=== PATIENT | male | born 1960 | race Caucasian/White ===

== ENCOUNTER 2021-06-15 01:57 | Inpatient (IN) | payer MEDICARE, OTHER ==
--- NOTE | 2021-06-15 02:13 | ED ---
Chest Pain HPI - General Chief Complaint: Chest Pain Stated Complaint: Chest Pain Time Seen by Provider: 06/15/21 02:06 Source: patient, EMS, RN notes reviewed, old records reviewed Mode of arrival: EMS Limitations: no limitations - History of Present Illness Initial Comments: This is a 61-year-old male who is accepted in transfer from outside facility known positive for coronavirus chest pain and elevated troponin. Patient states chest pain is currently improved, no fevers no significant shortness of breath. No current significant complaints MD Complaint: chest pain -: hour(s) Onset: during rest, during exertion Pain Location: substernal Pain Radiation: none Severity: moderate Severity scale (1-10): 4 Quality: tightness, aching Consistency: now resolved Improves With: nitroglycerin Worsens With: nothing Context: recent illness (postive COVID) Anginal Symptoms: nausea, dyspnea Treatments Prior to Arrival: none - Related Data Allergies Allergy/AdvReac Type Severity Reaction Status Date / Time Penicillins Allergy Unknown Verified 06/15/21 01:59 Review of Systems ROS Statement: Those systems with pertinent positive or pertinent negative responses have been documented in the HPI. ROS Other: All systems not noted in ROS Statement are negative. Past Medical History Past Medical History: Coronary Artery Disease (CAD), Diabetes Mellitus, Hyperlipidemia, Hypertension Additional Past Medical History / Comment(s): PAD History of Any Multi-Drug Resistant Organisms: None Reported Past Surgical History: Appendectomy, Coronary Bypass/CABG Past Psychological History: No Psychological Hx Reported Smoking Status: Current every day smoker Past Alcohol Use History: Occasional Past Drug Use History: None Reported General Exam General appearance: alert, in no apparent distress, anxious Head exam: Present: atraumatic, normocephalic, normal inspection Eye exam: Present: normal appearance, PERRL, EOMI. Absent: scleral icterus, conjunctival injection, periorbital swelling ENT exam: Present: normal exam, mucous membranes moist Neck exam: Present: normal inspection. Absent: tenderness, meningismus, lymphadenopathy Respiratory exam: Present: normal lung sounds bilaterally. Absent: respiratory distress, wheezes, rales, rhonchi, stridor Cardiovascular Exam: Present: regular rate, normal rhythm, normal heart sounds. Absent: systolic murmur, diastolic murmur, rubs, gallop, clicks GI/Abdominal exam: Present: soft, normal bowel sounds. Absent: distended, tenderness, guarding, rebound, rigid Extremities exam: Present: normal inspection, full ROM, normal capillary refill. Absent: tenderness, pedal edema, joint swelling, calf tenderness Back exam: Present: normal inspection Neurological exam: Present: alert, oriented X3, CN II-XII intact Psychiatric exam: Present: normal affect, normal mood Skin exam: Present: warm, dry, intact, normal color. Absent: rash Course Vital Signs 06/15/21 01:59 Temperature 98.2 F Pulse Rate 93 Respiratory 16 Rate Blood Pressure 138/95 O2 Sat by Pulse 94 L Oximetry - Reevaluation(s) Reevaluation #1: 06/15/21 02:14 Medical records reviewed 06/15/21 02:14 Transferring paperwork is reviewed Reevaluation #2: 06/15/21 02:14 Patient is informed results and questions have been answered 06/15/21 02:24 Patient continues to feel well - Consultations Consultation #1: Spoke with EM who agree to admit the patient Chest Pain MDM - MDM 61 male to the emergency department for evaluation rule out acute coronary syndrome with chest pain, positive for coronavirus. A she'll be admitted for cardiology evaluation management monitoring Disposition Clinical Impression: Chest pain, Acute non-ST elevation myocardial infarction (NSTEMI), Coronavirus infection, Alcohol intoxication Disposition: ADMITTED IP TO THIS HOSP Condition: Fair Is patient prescribed a controlled substance at d/c from ED?: No Referrals: Dandre Esposito MD [Primary Care Provider] - 1-2 days
[2021-06-15] MEDS ORDERED: NALOXONE 0.4 MG/ML 1 ML VIAL IV PRN (02:15)
[2021-06-15] MEDS ORDERED: ONDANSETRON 4 MG/2 ML VIAL IVP PRN (02:15)
[2021-06-15] MEDS: MORPHINE SULFATE 4 MG/ML SYRINGE IV PRN ×3 (02:45→10:47)
[2021-06-15 02:52] LABS: Basophils # (A) 0.1 k/uL (0-0.2); Basophils % (A) 1 %; Eosinophils # (A) 0.1 k/uL (0-0.7); Eosinophils % (A) 1 %; HCT 37.5 % (39.0-53.0); Lymphocytes # (A) 2.1 k/uL (1.0-4.8); Lymphocytes % (A) 16 %; MCH 34.1 pg (25.0-35.0); MCHC 34.6 g/dL (31.0-37.0); MCV 98.6 fL (80.0-100.0); Mean Platelet Volume 7.1; Monocytes # (A) 0.9 k/uL (0-1.0); Monocytes % (A) 7 %; Neutrophils # (A) 9.6 k/uL (1.3-7.7); Neutrophils % (A) 74 %; Platelet Count 347 k/uL (150-450); RDW 13.1 % (11.5-15.5)
[2021-06-15 03:14] LABS: INR 0.9 (<1.2); Partial Thromboplastin Time 30.3 sec (22.0-30.0); Prothrombin Time 9.9 sec (9.0-12.0)
[2021-06-15] MEDS ORDERED: HYDROmorphone 1 MG/ML 1 ML SYRINGE IVP STA (03:16)
[2021-06-15 03:21] LABS: ALT 23 U/L (4-49); AST 51 U/L (17-59); African American GFR (CKD) >90 (>60 ml/min/1.73 sqM); Albumin 4.7 g/dL (3.5-5.0); Alkaline Phosphatase 112 U/L (38-126); Anion Gap 16 mmol/L; Blood Urea Nitrogen 19 mg/dL (9-20); C Reactive Protein 4.3 mg/dL (<1.0); Carbon Dioxide 20 mmol/L (22-30); Chloride 92 mmol/L (98-107); Glucose 107 mg/dL (74-99); LDH 657 U/L (313-618); Lipase 139 U/L (23-300); Magnesium 1.5 mg/dL (1.6-2.3); Non-African American GFR(CKD) >90 (>60 ml/min/1.73 sqM); Sodium 128 mmol/L (137-145); Total Bilirubin 0.8 mg/dL (0.2-1.3); Total Protein 7.5 g/dL (6.3-8.2)
[2021-06-15 03:23] LABS: Potassium 6.1 mmol/L (3.5-5.1)
[2021-06-15] MEDS ORDERED: MAGNESIUM OXIDE 400 MG TAB PO STA (03:26)
[2021-06-15] MEDS ORDERED: DEXTROSE 50% SYRINGE 50 ML IVP STA (03:27)
[2021-06-15] MEDS ORDERED: SODIUM POLYSTYRENE SULFONATE 15 GM/60 ML BOTTLE PO STA (03:27)
[2021-06-15] MEDS ORDERED: INSULIN REGULAR 100 UNIT/ML VIAL (IV) IV ONE (03:27)
[2021-06-15] MEDS ORDERED: SODIUM BICARB 8.4% 50 ML SYR (1 MEQ/ML) IV STA (03:27)
[2021-06-15] MEDS ORDERED: SODIUM CHLORIDE 0.9% 500 ML 500 ML IV ONE (03:28)
[2021-06-15] MEDS ORDERED: SODIUM CHLORIDE 0.9% 1,000 ML IV ONE (03:28)
--- NOTE | 2021-06-15 03:45 | XR ---
EXAMINATION TYPE: XR chest 1V portable DATE OF EXAM: 06/15/2021 COMPARISON: Yesterday HISTORY: Chest pain TECHNIQUE: Single view FINDINGS: There is no heart failure nor confluent pneumonic infiltrate. There are sternal wires. Cost ophrenic angles are clear. IMPRESSION: No active cardiopulmonary disease. No change.
[2021-06-15] MEDS: MAGNESIUM SULFATE-D5W PMX 1 GM in DEXTROSE/WATER 1 100ML.BAG IVPB SCH ×4 (04:05→11:01)
[2021-06-15] MEDS: NITROGLYCERIN SL TABS 0.4 MG TAB SUBLINGUAL PRN ×3 (05:20→05:30)
[2021-06-15] MEDS: SODIUM CHLORIDE 0.9% 1,000 ML IV SCH ×3 (05:23→22:28)
[2021-06-15 05:38] LABS: Glucose,Whole Blood 126 mg/dL (75-99)
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
[2021-06-15] MEDS: HYDROmorphone 1 MG/ML 1 ML SYRINGE IVP PRN ×4 (08:17→21:11)
[2021-06-15] MEDS: ENOXAPARIN 40 MG/0.4 ML SYRINGE SQ SCH (08:23)
[2021-06-15] MEDS: PANTOPRAZOLE 40 MG/10 ML VIAL IVP SCH ×2 (08:23→21:11)
[2021-06-15] MEDS: NICOTINE 21MG/24HR PATCH TRANSDERM SCH (08:23)
[2021-06-15] MEDS: MAGNESIUM OXIDE 400 MG TAB PO SCH ×2 (08:25→21:02)
[2021-06-15] MEDS: ZINC SULFATE 220 MG CAP PO SCH (08:25)
--- NOTE | 2021-06-15 08:25 | US ---
EXAMINATION TYPE: US gallbladder DATE OF EXAM: 06/15/2021 COMPARISON: NONE CLINICAL HISTORY: Gall stones. Right upper quadrant pain EXAM MEASUREMENTS: Liver Length: 20.3 cm Gallbladder Wall: 0.2 cm CBD: 0.5 cm Right Kidney: 13.3 x 6.7 x 5.2 cm Pancreas: Echogenic, Tail obscured by overlying bowel gas Liver: Increased attenuation, decreased visualization of vessels suggestive of fatty infiltrate Gallbladder: No stones seen Evidence for sonographic Munson's sign: No CBD: wnl Right Kidney: No hydronephrosis or masses seen IMPRESSION: Correlate for hepatic steatosis.
[2021-06-15] MEDS ORDERED: lisinopriL 5 MG TAB PO SCH (09:00)
[2021-06-15] MEDS: ALBUTEROL HFA INHALER INHALATION PRN ×4 (09:42→20:37)
[2021-06-15] MEDS: THIAMINE 100 MG TAB PO SCH ×2 (10:48→17:32)
[2021-06-15] MEDS: carvediloL 12.5 MG TAB PO SCH ×2 (10:48→17:32)
[2021-06-15] MEDS: EZETIMIBE 10 MG TAB PO SCH (10:48)
[2021-06-15 11:39] LABS: Glucose,Whole Blood 167 mg/dL (75-99)
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
--- NOTE | 2021-06-15 12:25 | ECHOF ---
Referral Reason:Chest pain, SOB, covid MEASUREMENTS -------- HEIGHT: 182.9 cm WEIGHT: 104.3 kg BP: RVIDd: 4.1 cm (< 3.3) IVSd: 1.2 cm (0.6 - 1.1) LVIDd: 5.2 cm (3.9 - 5.3) LVPWd: 1.5 cm (0.6 - 1.1) IVSs: 1.6 cm LVIDs: 4.2 cm LVPWs: 1.8 cm LA Diam: 5.0 cm (2.7 - 3.8) FINDINGS -------- Sinus rhythm. Pt. not compliant. Limited Study due to Covid 19 exposure. The left ventricular size is normal. There is borderline concentric left ventricular hypertrophy. Overall left ventricular systolic function is mild-moderately impaired with, an EF between 40 - 45 % . The right ventricle is moderately enlarged. The left atrium is moderately dilated. The aortic valve is trileaflet and appears structurally normal. Mild mitral regurgitation is present. The tricuspid valve appears structurally normal. The pulmonic valve was not well visualized. There is no pericardial effusion. CONCLUSIONS -------- 1. Pt. not compliant. 2. Limited Study due to Covid 19 exposure. 3. There is borderline concentric left ventricular hypertrophy. 4. Overall left ventricular systolic function is mild-moderately impaired with, an EF between 40 - 45 %. 5. The right ventricle is moderately enlarged. 6. The left atrium is moderately dilated. 7. Mild mitral regurgitation is present. 8. There is no pericardial effusion. BULL RIVETER: Michelle Kimball RDCS
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
[2021-06-15 12:46] LABS: African American GFR (CKD) >90 (>60 ml/min/1.73 sqM); Anion Gap 12 mmol/L; Blood Urea Nitrogen 17 mg/dL (9-20); Calcium 8.6 mg/dL (8.4-10.2); Carbon Dioxide 20 mmol/L (22-30); Chloride 94 mmol/L (98-107); Glucose 115 mg/dL (74-99); Non-African American GFR(CKD) >90 (>60 ml/min/1.73 sqM); Potassium 4.8 mmol/L (3.5-5.1); Sodium 126 mmol/L (137-145)
[2021-06-15] MEDS: PREGABALIN 75 MG CAP PO SCH (15:49)
[2021-06-15 16:17] LABS: Glucose,Whole Blood 129 mg/dL (75-99)
[2021-06-15 20:42] LABS: Glucose,Whole Blood 172 mg/dL (75-99)
[2021-06-15] MEDS: ATORVASTATIN 40 MG TAB PO SCH (21:02)
[2021-06-15] MEDS: ASPIRIN 81 MG PO SCH (21:02)
[2021-06-15] MEDS: LORazepam 2 MG/ML INJ IV PRN (21:35)
[2021-06-15] MEDS: INSULIN ASPART (NovoLOG) 100 UNIT/ML VIAL SQ SCH (21:35)
[2021-06-16] MEDS: LORazepam 2 MG/ML INJ IV PRN ×14 (01:03→23:16)
[2021-06-16] MEDS: HYDROmorphone 1 MG/ML 1 ML SYRINGE IVP PRN ×6 (01:03→23:16)
[2021-06-16 06:12] LABS: Glucose,Whole Blood 119 mg/dL (75-99)
[2021-06-16] MEDS: INSULIN ASPART (NovoLOG) 100 UNIT/ML VIAL SQ SCH ×4 (06:19→20:58)
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
[2021-06-16 08:53] LABS: Basophils % (A) 0 %; Eosinophils # (A) 0.2 k/uL (0-0.7); Eosinophils % (A) 1 %; HCT 35.9 % (39.0-53.0); HGB 12.1 gm/dL (13.0-17.5); Lymphocytes # (A) 1.7 k/uL (1.0-4.8); Lymphocytes % (A) 13 %; MCH 34.2 pg (25.0-35.0); MCHC 33.7 g/dL (31.0-37.0); MCV 101.4 fL (80.0-100.0); Macrocytosis Slight; Mean Platelet Volume 7.4; Monocytes # (A) 0.7 k/uL (0-1.0); Monocytes % (A) 5 %; Neutrophils # (A) 10.3 k/uL (1.3-7.7); Neutrophils % (A) 79 %; Platelet Count 303 k/uL (150-450); RBC 3.54 m/uL (4.30-5.90); RDW 13.1 % (11.5-15.5)
[2021-06-16] MEDS: PREGABALIN 75 MG CAP PO SCH (09:06)
[2021-06-16] MEDS: ZINC SULFATE 220 MG CAP PO SCH (09:06)
[2021-06-16] MEDS: MAGNESIUM OXIDE 400 MG TAB PO SCH ×2 (09:06→20:12)
[2021-06-16] MEDS: carvediloL 12.5 MG TAB PO SCH ×2 (09:06→17:16)
[2021-06-16] MEDS: PANTOPRAZOLE 40 MG TABLET PO SCH ×2 (09:06→20:12)
[2021-06-16] MEDS: NICOTINE 21MG/24HR PATCH TRANSDERM SCH (09:06)
[2021-06-16] MEDS: ENOXAPARIN 40 MG/0.4 ML SYRINGE SQ SCH (09:06)
[2021-06-16] MEDS: EZETIMIBE 10 MG TAB PO SCH (09:07)
[2021-06-16 09:15] LABS: ALT 30 U/L (4-49); AST 55 U/L (17-59); African American GFR (CKD) >90 (>60 ml/min/1.73 sqM); Albumin 3.7 g/dL (3.5-5.0); Alkaline Phosphatase 93 U/L (38-126); Anion Gap 9 mmol/L; Blood Urea Nitrogen 11 mg/dL (9-20); Calcium 8.3 mg/dL (8.4-10.2); Carbon Dioxide 27 mmol/L (22-30); Chloride 93 mmol/L (98-107); Glucose 131 mg/dL (74-99); Lipase 99 U/L (23-300); Magnesium 1.8 mg/dL (1.6-2.3); Non-African American GFR(CKD) >90 (>60 ml/min/1.73 sqM); Potassium 4.3 mmol/L (3.5-5.1); Sodium 129 mmol/L (137-145); Total Protein 6.5 g/dL (6.3-8.2)
[2021-06-16 11:46] LABS: Glucose,Whole Blood 180 mg/dL (75-99)
[2021-06-16] MEDS: THIAMINE 100 MG TAB PO SCH ×2 (12:14→17:16)
[2021-06-16 17:04] LABS: Glucose,Whole Blood 140 mg/dL (75-99)
[2021-06-16] MEDS: SODIUM CHLORIDE 0.9% 1,000 ML IV SCH (20:08)
[2021-06-16] MEDS: ASPIRIN 81 MG PO SCH (20:12)
[2021-06-16] MEDS: ATORVASTATIN 40 MG TAB PO SCH (20:12)
[2021-06-16 20:51] LABS: Glucose,Whole Blood 115 mg/dL (75-99)
[2021-06-17] MEDS: LORazepam 2 MG/ML INJ IV PRN ×6 (02:25→23:26)
[2021-06-17] MEDS: HYDROmorphone 1 MG/ML 1 ML SYRINGE IVP PRN ×3 (03:32→16:20)
[2021-06-17] MEDS: SODIUM CHLORIDE 0.9% 1,000 ML IV SCH ×3 (06:16→23:26)
[2021-06-17] MEDS: carvediloL 12.5 MG TAB PO SCH ×2 (06:27→16:20)
[2021-06-17] MEDS: INSULIN ASPART (NovoLOG) 100 UNIT/ML VIAL SQ SCH ×4 (06:27→20:34)
[2021-06-17 06:31] LABS: Glucose,Whole Blood 85 mg/dL (75-99)
[2021-06-17 08:22] LABS: African American GFR (CKD) >90 (>60 ml/min/1.73 sqM); Anion Gap 9 mmol/L; Blood Urea Nitrogen 9 mg/dL (9-20); Carbon Dioxide 27 mmol/L (22-30); Chloride 95 mmol/L (98-107); Glucose 133 mg/dL (74-99); Magnesium 1.6 mg/dL (1.6-2.3); Non-African American GFR(CKD) >90 (>60 ml/min/1.73 sqM); Potassium 3.7 mmol/L (3.5-5.1); Sodium 131 mmol/L (137-145)
[2021-06-17] MEDS: ZINC SULFATE 220 MG CAP PO SCH (08:22)
[2021-06-17] MEDS: NICOTINE 21MG/24HR PATCH TRANSDERM SCH (08:22)
[2021-06-17] MEDS: PANTOPRAZOLE 40 MG TABLET PO SCH ×2 (08:22→20:34)
[2021-06-17] MEDS: ENOXAPARIN 40 MG/0.4 ML SYRINGE SQ SCH (08:22)
[2021-06-17] MEDS: MAGNESIUM OXIDE 400 MG TAB PO SCH ×2 (08:22→20:34)
[2021-06-17] MEDS: EZETIMIBE 10 MG TAB PO SCH (08:23)
[2021-06-17] MEDS: PREGABALIN 75 MG CAP PO SCH (08:23)
[2021-06-17] MEDS: MAGNESIUM SULFATE-D5W PMX 1 GM in DEXTROSE/WATER 1 100ML.BAG IVPB SCH ×2 (10:14→11:05)
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
[2021-06-17] MEDS: lisinopriL 5 MG TAB PO SCH (11:04)
[2021-06-17 11:38] LABS: Glucose,Whole Blood 208 mg/dL (75-99)
[2021-06-17] MEDS: THIAMINE 100 MG TAB PO SCH ×2 (13:24→16:19)
[2021-06-17 16:47] LABS: Glucose,Whole Blood 108 mg/dL (75-99)
[2021-06-17 20:14] LABS: Glucose,Whole Blood 230 mg/dL (75-99)
[2021-06-17] MEDS: ASPIRIN 81 MG PO SCH (20:34)
[2021-06-17] MEDS: ATORVASTATIN 40 MG TAB PO SCH (20:34)
[2021-06-18 00:32] VITALS: RESP 20
[2021-06-18] MEDS: LORazepam 2 MG/ML INJ IV PRN (03:38)
[2021-06-18 05:06] LABS: Glucose,Whole Blood 147 mg/dL (75-99)
[2021-06-18] MEDS: INSULIN ASPART (NovoLOG) 100 UNIT/ML VIAL SQ SCH ×2 (06:08→12:31)
[2021-06-18] MEDS: carvediloL 12.5 MG TAB PO SCH (06:08)
[2021-06-18 08:05] LABS: African American GFR (CKD) >90 (>60 ml/min/1.73 sqM); Anion Gap 11 mmol/L; Blood Urea Nitrogen 11 mg/dL (9-20); Calcium 9.3 mg/dL (8.4-10.2); Carbon Dioxide 23 mmol/L (22-30); Chloride 101 mmol/L (98-107); Glucose 133 mg/dL (74-99); Magnesium 1.6 mg/dL (1.6-2.3); Non-African American GFR(CKD) >90 (>60 ml/min/1.73 sqM); Potassium 3.9 mmol/L (3.5-5.1); Sodium 135 mmol/L (137-145)
[2021-06-18] MEDS: SODIUM CHLORIDE 0.9% 1,000 ML IV SCH (08:40)
[2021-06-18] MEDS: ZINC SULFATE 220 MG CAP PO SCH (08:55)
[2021-06-18] MEDS: PREGABALIN 75 MG CAP PO SCH (08:55)
[2021-06-18] MEDS: NICOTINE 21MG/24HR PATCH TRANSDERM SCH (08:55)
[2021-06-18] MEDS: ENOXAPARIN 40 MG/0.4 ML SYRINGE SQ SCH (08:55)
[2021-06-18] MEDS: lisinopriL 5 MG TAB PO SCH (08:55)
[2021-06-18] MEDS: EZETIMIBE 10 MG TAB PO SCH (08:55)
[2021-06-18] MEDS: MAGNESIUM OXIDE 400 MG TAB PO SCH (08:55)
[2021-06-18] MEDS: PANTOPRAZOLE 40 MG TABLET PO SCH (08:55)
[2021-06-18] MEDS ORDERED: Magnesium Replacement Protocol 1 EACH MISC MISCELLANE PRN (09:18)
[2021-06-18] MEDS: MAGNESIUM SULFATE-D5W PMX 1 GM in DEXTROSE/WATER 1 100ML.BAG IVPB SCH ×2 (10:18→12:26)
[2021-06-18 11:38] LABS: Glucose,Whole Blood 167 mg/dL (75-99)
[2021-06-18] MEDS: THIAMINE 100 MG TAB PO SCH (12:31)
[2021-06-18 13:06] VITALS: BP 154/57; PULSE 90; TEMP 98.4
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
== END 2021-06-18 16:20 | disposition home health service (06) | DRG 391 ==
LOC: EC 01:57 → 3SCARD 02:16
PROVIDERS: ADMIT Hospitalist; ATTEND Hospitalist
PROC: HZ2ZZZZ Detoxification Services for Substance Abuse Treatment (ICD-10-PCS; principal; 2021-06-15)
DX: K29.20 Alcoholic gastritis without bleeding (principal); U07.1 COVID-19; E87.1 Hypo-osmolality and hyponatremia; E87.2 Acidosis; F10.239 Alcohol dependence with withdrawal, unspecified; I25.10 Atherosclerotic heart disease of native coronary artery without angina pectoris; Z20.822 Contact with and (suspected) exposure to COVID-19; E11.51 Type 2 diabetes mellitus with diabetic peripheral angiopathy without gangrene; I10 Essential (primary) hypertension; D72.829 Elevated white blood cell count, unspecified; R07.89 Other chest pain; K27.9 Peptic ulcer, site unspecified, unspecified as acute or chronic, without hemorrhage or perforation; E78.5 Hyperlipidemia, unspecified; E83.42 Hypomagnesemia; E86.0 Dehydration; E86.1 Hypovolemia; E87.5 Hyperkalemia; F10.229 Alcohol dependence with intoxication, unspecified; F17.210 Nicotine dependence, cigarettes, uncomplicated; I34.0 Nonrheumatic mitral (valve) insufficiency; K76.0 Fatty (change of) liver, not elsewhere classified; Z79.84 Long term (current) use of oral hypoglycemic drugs; Z79.899 Other long term (current) drug therapy; Z95.1 Presence of aortocoronary bypass graft; Z88.0 Allergy status to penicillin; Z71.41 Alcohol abuse counseling and surveillance of alcoholic
CPT/HCPCS: 36415; 71045; 76705; 80048; 80053; 83615; 83690; 83735; 83880; 84100; 84484; 85025; 85610; 85730; 86140; 87635; 93005; 93308; 94640; 94760; 99285

== ENCOUNTER 2024-04-17 02:33 | Emergency (ER) | payer MEDICARE, OTHER ==
--- NOTE | 2024-04-17 02:44 | ED ---
Arrhythmia/Palpitations HPI - General Stated Complaint: Syncope Time Seen by Provider: 04/17/24 02:38 Source: EMS Mode of arrival: EMS - History of Present Illness Initial Comments: Patient is a 63-year-old man with history of end-stage renal disease on hemodialysis who presents to have evaluation for dizziness, nausea and vomiting. The patient states that he had eaten dinner. He then got up to use the bathroom and was feeling very lightheaded and unsteady, like he was going to pass out. The patient was able to make it to bed and then he had an episode of vomiting. His had already called EMS. Patient states that he felt better after vomiting and wanted to stay home but EMS placed him on monitor and found that he had rapid heart beat above 150 bpm. Patient states he thinks he was told he had irregular heartbeat in the past, and search of his medications reveals that he takes amiodarone 200 mg daily. Chest pain. No dyspnea currently. No more nausea or vomiting. MD Complaint: "heart racing" -: hour(s) Context: occurred during rest Arrhythmia History: atrial fibrillation Associated Symptoms: near-syncope, nausea/vomiting Treatments Prior to Arrival: calcium channel lucinda - Related Data Home Medications Medication Instructions Recorded Confirmed Rosuvastatin [Crestor] 20 mg PO HS 06/15/21 04/24/24 Amiodarone [Cordarone] 200 mg PO DAILY 04/24/24 04/24/24 Aspirin 81 mg PO DAILY 04/24/24 04/24/24 Clopidogrel [Plavix] 75 mg PO DAILY 04/24/24 04/24/24 Loperamide [Imodium] 4 mg PO QID PRN 04/24/24 04/24/24 Metoprolol Tartrate [Lopressor] 12.5 mg PO BID 04/24/24 04/24/24 Midodrine HCl [ProAmatine] 10 mg PO BID 04/24/24 04/24/24 Nystatin 100,000 Unit/gm Powd 1 applic TOPICAL TID 04/24/24 04/24/24 [Mycostatin Powder] OLANZapine 10 mg PO HS 04/24/24 04/24/24 Omeprazole 40 mg PO DAILY 04/24/24 04/24/24 Potassium Chloride ER [K-Dur 20] 20 meq PO DAILY 04/24/24 04/24/24 Sertraline [Zoloft] 25 mg PO DAILY 04/24/24 04/24/24 Sevelamer [Renvela] 800 mg PO AC-TID 04/24/24 04/24/24 Allergies Allergy/AdvReac Type Severity Reaction Status Date / Time Penicillins Allergy Unknown Verified 04/24/24 14:32 Review of Systems ROS Statement: Those systems with pertinent positive or pertinent negative responses have been documented in the HPI. ROS Other: All systems not noted in ROS Statement are negative. Constitutional: Denies: fever, chills, weakness Eyes: Denies: vision change Respiratory: Denies: cough, dyspnea, hemoptysis Cardiovascular: Reports: syncope (Presyncope). Denies: chest pain, palpitations, edema Gastrointestinal: Reports: nausea, vomiting. Denies: abdominal pain, diarrhea, hematemesis, melena, hematochezia Genitourinary: Denies: dysuria Musculoskeletal: Denies: back pain Skin: Denies: rash Neurological: Denies: headache, weakness Past Medical History Past Medical History: Coronary Artery Disease (CAD), Diabetes Mellitus, Hyperlipidemia, Hypertension Additional Past Medical History / Comment(s): PAD History of Any Multi-Drug Resistant Organisms: None Reported Past Surgical History: Appendectomy, Coronary Bypass/CABG Past Psychological History: No Psychological Hx Reported Smoking Status: Current every day smoker Past Alcohol Use History: Occasional Past Drug Use History: None Reported General Exam General appearance: alert, in no apparent distress Head exam: Present: atraumatic, normocephalic Eye exam: Present: normal appearance. Absent: scleral icterus, conjunctival injection ENT exam: Present: mucous membranes dry Neck exam: Present: normal inspection Respiratory exam: Present: normal lung sounds bilaterally. Absent: respiratory distress, wheezes, rales, rhonchi, stridor, accessory muscle use Cardiovascular Exam: Present: tachycardia, irregular rhythm, systolic murmur. Absent: diastolic murmur, rubs, gallop GI/Abdominal exam: Present: soft. Absent: distended, tenderness, guarding, rebound, rigid, mass Extremities exam: Present: normal inspection, normal capillary refill. Absent: pedal edema, calf tenderness Back exam: Present: normal inspection. Absent: CVA tenderness (R), CVA tenderness (L) Neurological exam: Present: alert Skin exam: Present: warm, dry, intact, normal color. Absent: rash Course Vital Signs 12/28/24 12/28/24 12/28/24 02:35 03:00 03:30 Temperature 98.0 F Pulse Rate 128 H 121 H 128 H Respiratory 18 18 18 Rate Blood Pressure 71/51 83/61 75/56 O2 Sat by Pulse 94 L 95 95 Oximetry 04/17/24 04:00 Temperature Pulse Rate 71 Respiratory 18 Rate Blood Pressure 79/62 O2 Sat by Pulse 95 Oximetry EKG Findings - EKG Results: EKG: normal axis EKG shows: tachycardia (Rate 130 bpm), atrial fibrillation - Blocks, [place], Hypertrophy, ST Abn: AV and intraventricular conduction: intraventricular conduction delay Repolarization changes or abnormalities: nonspecific abnormality, ST segment, and/or T wave Medical Decision Making - Medical Decision Making The patient had chest x-ray that I interpreted as negative for acute infiltrate, pneumothorax, congestive heart failure Was pt. sent in by a medical professional or institution (Dr. PA, RESIDENTIAL TREATMENT COUNSELOR, urgent care, hospital, or prison...) When possible be specific @ -[No] Did you speak to anyone other than the patient for history (EMS, parent, family, police, friend...)? What history was obtained from this source @ -[No] Did you review nursing and triage notes (agree or disagree)? Why? @ -[I reviewed and agree with nursing and triage notes] Were old charts reviewed (outside hosp., previous admission, EMS record, old EKG, old radiological studies, urgent care reports/EKG's, prison records)? Report findings @ -[No old charts were reviewed] Differential Diagnosis (chest pain, altered mental status, abdominal pain women, abdominal pain men, vaginal bleeding, weakness, fever, dyspnea, syncope, headache, dizziness, GI bleed, back pain, seizure, CVA, palpatations, mental health, musculoskeletal)? @ -[Differential Dizziness: Benign paroxysmal positional Vertigo, Meniere's disease, otitis media, acoustic neuroma, vertebrobasilar insufficiency, cerebellar stroke, encephalitis, hypovolemic, arrhythmia, coronary artery syndrome, anemia, this is not meant to be an all-inclusive list EKG interpreted by me (3pts min.). @ -[I interpreted as above] X-rays interpreted by me (1pt min.). @ -[I interpreted as above CT interpreted by me (1pt min.). @ -[None done] U/S interpreted by me (1pt. min.). @ -[None done] What testing was considered but not performed or refused? (CT, X-rays, U/S, labs)? Why? @ -[None] What meds were considered but not given or refused? Why? @ -[None] Did you discuss the management of the patient with other professionals (lisa burks i.e. , PA, RESIDENTIAL TREATMENT COUNSELOR, lab, RT, psych nurse, professor of social work, dual hose cementer, teacher, disabilities services officer, machine adjuster leader case trim)? Give summary @ -[No] Was smoking cessation discussed for >3mins.? @ -[No] Was critical care preformed (if so, how long)? @ -[No] Were there social determinants of health that impacted care today? How? (Homelessness, low income, unemployed, alcoholism, drug addiction, transportation, low edu. Level, literacy, decrease access to med. care, assisted, rehab)? @ -[No] Was there de-escalation of care discussed even if they declined (Discuss DNR or withdrawal of care, Hospice)? DNR status @ -[No] What co-morbidities impacted this encounter? (DM, HTN, Smoking, COPD, CAD, Cancer, CVA, ARF, Chemo, Hep., AIDS, mental health diagnosis, sleep apnea, morbid obesity)? @ -[None] Was patient admitted / discharged? Hospital course, mention meds given and route, prescriptions, significant lab abnormalities, going to OR and other pertinent info. @ -This patient is 64-year-old man who presented with complaint that he was not feeling well, including feeling lightheaded and dizzy, having nausea and vomiting. The patient is found to be in atrial fibrillation. The remainder of the workup largely unremarkable. The patient does take amiodarone and is given dose of his medication. The patient did revert to sinus rhythm in the department here. He was offered admission but he is declining and would like to follow-up with his doctor as an outpatient. We discussed appropriate further care and follow-up as well as return parameters. The patient did have mild elevation of troponin but suspect that this is due to the renal failure, there may be a small component related to rate but he has become asymptomatic and declined admission Undiagnosed new problem with uncertain prognosis? @ -[No] Drug Therapy requiring intensive monitoring for toxicity (Heparin, Nitro, Insulin, Cardizem)? @ -[No] Were any procedures done? @ -[No] Diagnosis/symptom? @ -Atrial fibrillation with rapid ventricular rate, subsequently resolved Nausea and vomiting, resolved Dizziness, resolved Acute, or Chronic, or Acute on Chronic? @ -[Acute Uncomplicated (without systemic symptoms) or Complicated (systemic symptoms)? @ -[Complicated by nausea and vomiting and dizziness Side effects of treatment? @ -[No] Exacerbation, Progression, or Severe Exacerbation? @ -[No] Poses a threat to life or bodily function? How? (Chest pain, USA, [place], pneumonia, PE, COPD, DKA, ARF, appy, cholecystitis, CVA, Diverticulitis, Homicidal, Suicidal, threat to staff... and all critical care pts) @ -[ there is risk but low, discussed appropriate further care and follow-up as well as return parameters All treatments are based on ideal body weight as in ED triage - Lab Data Result diagrams: 04/17/24 02:42 04/17/24 02:42 Lab Results 04/17/24 04/17/24 04/17/24 Range/Units 02:42 02:42 02:42 WBC 9.9 (3.8-10.6) k/uL RBC 3.11 L (4.30-5.90) m/uL Hgb 9.5 L (13.0-17.5) gm/dL Hct 29.0 L (39.0-53.0) % MCV 93.3 (80.0-100.0) fL MCH 30.7 (25.0-35.0) pg MCHC 32.9 (31.0-37.0) g/dL RDW 14.4 (11.5-15.5) % Plt Count 329 (150-450) k/uL MPV 7.3 Neutrophils % 67 % Lymphocytes % 21 % Monocytes % 7 % Eosinophils % 3 % Basophils % 0 % Neutrophils # 6.6 (1.3-7.7) k/uL Lymphocytes # 2.0 (1.0-4.8) k/uL Monocytes # 0.7 (0-1.0) k/uL Eosinophils # 0.3 (0-0.7) k/uL Basophils # 0.0 (0-0.2) k/uL PT 11.1 (10.0-12.5) sec INR 1.0 (<1.2) APTT 22.9 (22.0-30.0) sec Sodium 137 (137-145) mmol/L Potassium 4.6 (3.5-5.1) mmol/L Chloride 92 L (98-107) mmol/L Carbon Dioxide 34 H (22-30) mmol/L Anion Gap 11 mmol/L BUN 51 H (9-20) mg/dL Creatinine 6.80 H (0.66-1.25) mg/dL Est GFR (CKD-EPI)AfAm 9 (>60 ml/min/1.73 sqM) Est GFR (CKD-EPI)NonAf 8 (>60 ml/min/1.73 sqM) Glucose 109 H (74-99) mg/dL Calcium 9.7 (8.4-10.2) mg/dL Magnesium 1.7 (1.6-2.3) mg/dL Total Bilirubin 0.6 (0.2-1.3) mg/dL AST 38 (17-59) U/L ALT 30 (4-49) U/L Alkaline Phosphatase 310 H (38-126) U/L Troponin I (0.000-0.034) ng/mL Total Protein 7.9 (6.3-8.2) g/dL Albumin 4.7 (3.5-5.0) g/dL 04/17/24 Range/Units 02:42 WBC (3.8-10.6) k/uL RBC (4.30-5.90) m/uL Hgb (13.0-17.5) gm/dL Hct (39.0-53.0) % MCV (80.0-100.0) fL MCH (25.0-35.0) pg MCHC (31.0-37.0) g/dL RDW (11.5-15.5) % Plt Count (150-450) k/uL MPV Neutrophils % % Lymphocytes % % Monocytes % % Eosinophils % % Basophils % % Neutrophils # (1.3-7.7) k/uL Lymphocytes # (1.0-4.8) k/uL Monocytes # (0-1.0) k/uL Eosinophils # (0-0.7) k/uL Basophils # (0-0.2) k/uL PT (10.0-12.5) sec INR (<1.2) APTT (22.0-30.0) sec Sodium (137-145) mmol/L Potassium (3.5-5.1) mmol/L Chloride (98-107) mmol/L Carbon Dioxide (22-30) mmol/L Anion Gap mmol/L BUN (9-20) mg/dL Creatinine (0.66-1.25) mg/dL Est GFR (CKD-EPI)AfAm (>60 ml/min/1.73 sqM) Est GFR (CKD-EPI)NonAf (>60 ml/min/1.73 sqM) Glucose (74-99) mg/dL Calcium (8.4-10.2) mg/dL Magnesium (1.6-2.3) mg/dL Total Bilirubin (0.2-1.3) mg/dL AST (17-59) U/L ALT (4-49) U/L Alkaline Phosphatase (38-126) U/L Troponin I 0.057 H* (0.000-0.034) ng/mL Total Protein (6.3-8.2) g/dL Albumin (3.5-5.0) g/dL Disposition Clinical Impression: Atrial fibrillation Disposition: HOME SELF-CARE Condition: Good Instructions (If sedation given, give patient instructions): A-fib (Atrial Fibrillation) (ED) Is patient prescribed a controlled substance at d/c from ED?: No Referrals: Mike Alfred MD [Primary Care Provider] - 1-2 days
[2024-04-17 02:47] VITALS: RESP 18; TEMP 98
[2024-04-17] MEDS: AMIODARONE 200 MG TAB PO STA (02:50)
[2024-04-17 02:57] LABS: Basophils % (A) 0 %; Eosinophils # (A) 0.3 k/uL (0-0.7); Eosinophils % (A) 3 %; HGB 9.5 gm/dL (13.0-17.5); Lymphocytes % (A) 21 %; MCH 30.7 pg (25.0-35.0); MCHC 32.9 g/dL (31.0-37.0); MCV 93.3 fL (80.0-100.0); Mean Platelet Volume 7.3; Monocytes # (A) 0.7 k/uL (0-1.0); Monocytes % (A) 7 %; Neutrophils # (A) 6.6 k/uL (1.3-7.7); Neutrophils % (A) 67 %; Platelet Count 329 k/uL (150-450); RBC 3.11 m/uL (4.30-5.90); RDW 14.4 % (11.5-15.5); WBC 9.9 k/uL (3.8-10.6)
[2024-04-17 03:07] LABS: Partial Thromboplastin Time 22.9 sec (22.0-30.0); Prothrombin Time 11.1 sec (10.0-12.5)
[2024-04-17 03:19] LABS: ALT 30 U/L (4-49); AST 38 U/L (17-59); African American GFR (CKD) 9 (>60 ml/min/1.73 sqM); Albumin 4.7 g/dL (3.5-5.0); Alkaline Phosphatase 310 U/L (38-126); Anion Gap 11 mmol/L; Blood Urea Nitrogen 51 mg/dL (9-20); Calcium 9.7 mg/dL (8.4-10.2); Carbon Dioxide 34 mmol/L (22-30); Chloride 92 mmol/L (98-107); Glucose 109 mg/dL (74-99); Magnesium 1.7 mg/dL (1.6-2.3); Non-African American GFR(CKD) 8 (>60 ml/min/1.73 sqM); Potassium 4.6 mmol/L (3.5-5.1); Sodium 137 mmol/L (137-145); Total Bilirubin 0.6 mg/dL (0.2-1.3); Total Protein 7.9 g/dL (6.3-8.2)
--- NOTE | 2024-04-17 03:59 | XR ---
EXAM: XR Chest, 1 View CLINICAL HISTORY: ITS.REASON XR Reason: dysrhythmia TECHNIQUE: Frontal view of the chest. COMPARISON: No relevant prior studies available. FINDINGS: Lungs: No consolidation or mass. Pleural space: No acute findings. Heart: cardiomegaly. Bones/joints: No acute findings. IMPRESSION: No acute cardiopulmonary process.
[2024-04-17 04:08] VITALS: BP 79/62; PULSE 71
== END 2024-04-17 04:00 | disposition home or self-care (01) ==
LOC: EC 02:33
DX: I48.91 Unspecified atrial fibrillation (principal); F17.200 Nicotine dependence, unspecified, uncomplicated; Z88.0 Allergy status to penicillin; Z95.1 Presence of aortocoronary bypass graft; Z99.2 Dependence on renal dialysis
CPT/HCPCS: 36415; 71045; 80053; 83735; 84484; 85025; 85610; 85730; 93005; 99284

== ENCOUNTER 2024-04-24 12:39 | Emergency (ER) | payer MEDICARE ==
[2024-04-24 12:49] VITALS: RESP 18; TEMP 97.8
[2024-04-24] MEDS: SODIUM CHLORIDE 0.9% 500 ML 500 ML IV STA (13:14)
--- NOTE | 2024-04-24 13:14 | ED ---
Weakness HPI - General Chief complaint: Weakness Stated complaint: weakness Time Seen by Provider: 04/24/24 12:52 Source: patient, family, EMS, RN notes reviewed Mode of arrival: EMS Limitations: no limitations - History of Present Illness Initial comments: 63-year-old male presents emerged part via EMS from dialysis for weakness, hypotension and syncope. Patient had multiple syncopal episodes. Patient states that has been happening more frequently. Patient has been on dialysis for last 3 weeks after acute kidney failure from antibiotic use. Patient states that he did go on completed a session he states he is on midodrine for his blood pressure has been on the lower side he states he did take it this morning. Patient states she does have an ostomy and when she has short bowel syndrome and he has high output. Patient states he is urinated 4 times today but still feels dehydrated. He denies any shortness of breath, fever or chills he states he is always weak feeling but is worse than usual. - Related Data Home Medications Medication Instructions Recorded Confirmed Rosuvastatin [Crestor] 20 mg PO HS 06/15/21 04/24/24 Amiodarone [Cordarone] 200 mg PO DAILY 04/24/24 04/24/24 Aspirin 81 mg PO DAILY 04/24/24 04/24/24 Clopidogrel [Plavix] 75 mg PO DAILY 04/24/24 04/24/24 Loperamide [Imodium] 4 mg PO QID PRN 04/24/24 04/24/24 Metoprolol Tartrate [Lopressor] 12.5 mg PO BID 04/24/24 04/24/24 Midodrine HCl [ProAmatine] 10 mg PO BID 04/24/24 04/24/24 Nystatin 100,000 Unit/gm Powd 1 applic TOPICAL TID 04/24/24 04/24/24 [Mycostatin Powder] OLANZapine 10 mg PO HS 04/24/24 04/24/24 Omeprazole 40 mg PO DAILY 04/24/24 04/24/24 Potassium Chloride ER [K-Dur 20] 20 meq PO DAILY 04/24/24 04/24/24 Sertraline [Zoloft] 25 mg PO DAILY 04/24/24 04/24/24 Sevelamer [Renvela] 800 mg PO AC-TID 04/24/24 04/24/24 Allergies Allergy/AdvReac Type Severity Reaction Status Date / Time Penicillins Allergy Unknown Verified 04/24/24 14:32 Review of Systems ROS Statement: Those systems with pertinent positive or pertinent negative responses have been documented in the HPI. ROS Other: All systems not noted in ROS Statement are negative. Past Medical History Past Medical History: Coronary Artery Disease (CAD), Diabetes Mellitus, Dialys is, Hyperlipidemia, Hypertension Additional Past Medical History / Comment(s): PAD, current dialysis port right chest (Apr 2024), Feeding tube left chest (Apr 2024) History of Any Multi-Drug Resistant Organisms: None Reported Past Surgical History: Appendectomy, Coronary Bypass/CABG Past Psychological History: No Psychological Hx Reported Smoking Status: Current every day smoker Past Alcohol Use History: Occasional Past Drug Use History: None Reported General Exam Limitations: no limitations General appearance: alert, in no apparent distress Head exam: Present: atraumatic, normocephalic, normal inspection Eye exam: Present: normal appearance, PERRL, EOMI. Absent: scleral icterus, conjunctival injection, periorbital swelling ENT exam: Present: normal exam, normal oropharynx, mucous membranes moist Neck exam: Present: normal inspection. Absent: tenderness, meningismus, lymphadenopathy Respiratory exam: Present: normal lung sounds bilaterally. Absent: respiratory distress, wheezes, rales, rhonchi, stridor Cardiovascular Exam: Present: regular rate, normal rhythm, normal heart sounds. Absent: systolic murmur, diastolic murmur, rubs, gallop, clicks GI/Abdominal exam: Present: soft, normal bowel sounds, other (Ostomy noted, large output in colostomy bag). Absent: distended, tenderness, guarding, rebound, rigid Back exam: Absent: CVA tenderness (R), CVA tenderness (L) Neurological exam: Present: alert, oriented X3, CN II-XII intact Skin exam: Present: warm, dry, intact, normal color. Absent: rash Course Vital Signs 04/24/24 04/24/24 04/24/24 12:47 12:49 12:50 Temperature 97.8 F Pulse Rate 75 78 Pulse Rate [ 79 Orthopedics Nurse ] Respiratory 18 18 Rate Blood Pressure 83/56 83/56 O2 Sat by Pulse 92 L 93 L Oximetry 04/24/24 04/24/24 04/24/24 13:00 13:10 13:20 Temperature Pulse Rate 82 80 80 Pulse Rate [ Orthopedics Nurse ] Respiratory 18 18 18 Rate Blood Pressure 70/43 71/42 63/44 O2 Sat by Pulse 99 99 95 Oximetry 04/24/24 04/24/24 13:24 14:26 Temperature Pulse Rate 72 73 Pulse Rate [ Orthopedics Nurse ] Respiratory 18 18 Rate Blood Pressure 80/63 74/48 O2 Sat by Pulse 92 L 98 Oximetry Medical Decision Making - Medical Decision Making Was pt. sent in by a medical professional or institution (MUSTAPHA Camargo, ACCOUNT TECHNICIAN, urgent care, hospital, or longterm...) When possible be specific @ -Dialysis Did you speak to anyone other than the patient for history (EMS, parent, family, police, friend...)? What history was obtained from this source @ -No Did you review nursing and triage notes (agree or disagree)? Why? @ -I reviewed and agree with nursing and triage notes Were old charts reviewed (outside hosp., previous admission, EMS record, old EKG, old radiological studies, urgent care reports/EKG's, longterm records)? Report findings @ -No old charts were reviewed Differential Diagnosis (chest pain, altered mental status, abdominal pain women, abdominal pain men, vaginal bleeding, weakness, fever, dyspnea, syncope, headache, dizziness, GI bleed, back pain, seizure, CVA, palpatations, mental health, musculoskeletal)? @ -Differential Weakness: Hypoglycemia, shock, sepsis, hyponatremia, anemia, infection, [place], ETOH, adverse medicine reaction, overdose, stroke, this is not meant to be an all-inclusive list. EKG interpreted by me (3pts min.). @ -As above X-rays interpreted by me (1pt min.). @ -[Chest shows no acute cardiopulmonary process CT interpreted by me (1pt min.). @ -None done U/S interpreted by me (1pt. min.). @ -None done What testing was considered but not performed or refused? (CT, X-rays, U/S, labs)? Why? @ -None What meds were considered but not given or refused? Why? @ -None Did you discuss the management of the patient with other professionals (professionals i.e. MUSTAPHA Camargo, ACCOUNT TECHNICIAN, lab, RT, psych nurse, public health social worker, linux security administrator, teacher, public affairs officer, pillowcase cutter)? Give summary @ -Aneesh [facility] physician for admission with consults to nephrology, cardiology Was smoking cessation discussed for >3mins.? @ -No Was critical care preformed (if so, how long)? @ -No Were there social determinants of health that impacted care today? How? (Homelessness, low income, unemployed, alcoholism, drug addiction, transportation, low edu. Level, literacy, decrease access to med. care, care home, rehab)? @ -No Was there de-escalation of care discussed even if they declined (Discuss DNR or withdrawal of care, Hospice)? DNR status @ -No What co-morbidities impacted this encounter? (DM, HTN, Smoking, COPD, CAD, Cancer, CVA, ARF, Chemo, Hep., AIDS, mental health diagnosis, sleep apnea, morbid obesity)? @ -Renal failure Was patient admitted / discharged? Hospital course, mention meds given and route, prescriptions, significant lab abnormalities, going to OR and other pertinent info. @ -Admitted patient presented for increasing syncope, hypotension and weakness. Patient has renal failure worsening from baseline. Patient remains to be hypot ensive was given IV fluids, midodrine. Patient will be admitted for cardiology and nephrology evaluation. Undiagnosed new problem with uncertain prognosis? @ -No Drug Therapy requiring intensive monitoring for toxicity (Heparin, Nitro, Insulin, Cardizem)? @ -No Were any procedures done? @ -No Diagnosis/symptom? @ -Renal failure, hypotension, syncope Acute, or Chronic, or Acute on Chronic? @ -Acute Uncomplicated (without systemic symptoms) or Complicated (systemic symptoms)? @ -Complicated Side effects of treatment? @ -No Exacerbation, Progression, or Severe Exacerbation? @ -No Poses a threat to life or bodily function? How? (Chest pain, [place], [place], pneumonia, PE, COPD, DKA, ARF, appy, cholecystitis, CVA, Diverticulitis, Homicidal, Suicidal, threat to staff... and all critical care pts) @ -Yes cardiac dysfunction - Lab Data Result diagrams: 04/24/24 13:10 04/24/24 13:10 Lab Results 04/24/24 04/24/24 04/24/24 Range/Units 13:10 13:10 13:10 WBC 9.3 (3.8-10.6) k/uL RBC 3.08 L (4.30-5.90) m/uL Hgb 9.6 L (13.0-17.5) gm/dL Hct 28.5 L (39.0-53.0) % MCV 92.6 (80.0-100.0) fL MCH 31.1 (25.0-35.0) pg MCHC 33.6 (31.0-37.0) g/dL RDW 14.7 (11.5-15.5) % Plt Count 296 (150-450) k/uL MPV 7.4 Neutrophils % 66 % Lymphocytes % 22 % Monocytes % 6 % Eosinophils % 3 % Basophils % 1 % Neutrophils # 6.1 (1.3-7.7) k/uL Lymphocytes # 2.0 (1.0-4.8) k/uL Monocytes # 0.6 (0-1.0) k/uL Eosinophils # 0.2 (0-0.7) k/uL Basophils # 0.1 (0-0.2) k/uL PT 10.6 (10.0-12.5) sec INR 0.9 (<1.2) APTT 23.4 (22.0-30.0) sec Sodium 133 L (137-145) mmol/L Potassium 4.6 (3.5-5.1) mmol/L Chloride 75 L (98-107) mmol/L Carbon Dioxide 35 H (22-30) mmol/L Anion Gap 23 mmol/L BUN 96 H (9-20) mg/dL Creatinine 8.90 H* (0.66-1.25) mg/dL Est GFR (CKD-EPI)AfAm 7 (>60 ml/min/1.73 sqM) Est GFR (CKD-EPI)NonAf 6 (>60 ml/min/1.73 sqM) Glucose 226 H (74-99) mg/dL Plasma Lactic Acid Noman (0.7-2.0) mmol/L Calcium 9.6 (8.4-10.2) mg/dL Magnesium 1.5 L (1.6-2.3) mg/dL Total Bilirubin 1.0 (0.2-1.3) mg/dL AST 55 (17-59) U/L ALT 43 (4-49) U/L Alkaline Phosphatase 299 H (38-126) U/L Troponin I (0.000-0.034) ng/mL NT-Pro-B Natriuret Pep 3300 pg/mL Total Protein 8.4 H (6.3-8.2) g/dL Albumin 4.9 (3.5-5.0) g/dL 04/24/24 04/24/24 Range/Units 13:10 13:10 WBC (3.8-10.6) k/uL RBC (4.30-5.90) m/uL Hgb (13.0-17.5) gm/dL Hct (39.0-53.0) % MCV (80.0-100.0) fL MCH (25.0-35.0) pg MCHC (31.0-37.0) g/dL RDW (11.5-15.5) % Plt Count (150-450) k/uL MPV Neutrophils % % Lymphocytes % % Monocytes % % Eosinophils % % Basophils % % Neutrophils # (1.3-7.7) k/uL Lymphocytes # (1.0-4.8) k/uL Monocytes # (0-1.0) k/uL Eosinophils # (0-0.7) k/uL Basophils # (0-0.2) k/uL PT (10.0-12.5) sec INR (<1.2) APTT (22.0-30.0) sec Sodium (137-145) mmol/L Potassium (3.5-5.1) mmol/L Chloride (98-107) mmol/L Carbon Dioxide (22-30) mmol/L Anion Gap mmol/L BUN (9-20) mg/dL Creatinine (0.66-1.25) mg/dL Est GFR (CKD-EPI)AfAm (>60 ml/min/1.73 sqM) Est GFR (CKD-EPI)NonAf (>60 ml/min/1.73 sqM) Glucose (74-99) mg/dL Plasma Lactic Acid Noman 2.2 H* (0.7-2.0) mmol/L Calcium (8.4-10.2) mg/dL Magnesium (1.6-2.3) mg/dL Total Bilirubin (0.2-1.3) mg/dL AST (17-59) U/L ALT (4-49) U/L Alkaline Phosphatase (38-126) U/L Troponin I 0.045 H* (0.000-0.034) ng/mL NT-Pro-B Natriuret Pep pg/mL Total Protein (6.3-8.2) g/dL Albumin (3.5-5.0) g/dL - EKG Data -: EKG Interpreted by Me EKG Comments: EKG performed at 12: 49 sinus rhythm with a rate of 76 [place] 125 QRS 112 QT/QTc 398/428 Disposition Clinical Impression: Syncope, Renal failure, Hypotension Disposition: ADMITTED IP TO THIS HOSP Condition: Serious Referrals: Mike Alfred MD [Primary Care Provider] - 1-2 days Time of Disposition: 14:46
[2024-04-24 13:26] LABS: Basophils # (A) 0.1 k/uL (0-0.2); Basophils % (A) 1 %; Eosinophils # (A) 0.2 k/uL (0-0.7); Eosinophils % (A) 3 %; HCT 28.5 % (39.0-53.0); HGB 9.6 gm/dL (13.0-17.5); Lymphocytes % (A) 22 %; MCH 31.1 pg (25.0-35.0); MCHC 33.6 g/dL (31.0-37.0); MCV 92.6 fL (80.0-100.0); Mean Platelet Volume 7.4; Monocytes # (A) 0.6 k/uL (0-1.0); Monocytes % (A) 6 %; Neutrophils # (A) 6.1 k/uL (1.3-7.7); Neutrophils % (A) 66 %; Platelet Count 296 k/uL (150-450); RBC 3.08 m/uL (4.30-5.90); RDW 14.7 % (11.5-15.5); WBC 9.3 k/uL (3.8-10.6)
--- NOTE | 2024-04-24 13:32 | XR ---
EXAMINATION TYPE: XR chest 2V DATE OF EXAM: 04/24/2024 CLINICAL HISTORY: Weakness TECHNIQUE: Frontal and lateral views of the chest are obtained. COMPARISON: Chest x-ray April 17, 2024 FINDINGS: Overlying sternal wires and mediastinal clips are redemonstrated. Stable large bore right i nternal jugular dialysis catheter. Stable left-sided subclavian central venous catheter. Suspect mild underlying emphysematous change. No new focal airspace opacity, pleural effusion, or pneumothorax is seen bilaterally. Cardiac silhouette size is stable and within normal limits with atherosclerotic th oracic aorta redemonstrated. Osseous structures are intact. IMPRESSION: Chronic changes without acute cardiopulmonary process. [facility] Clara Borrero, , 04/24/2024 1:29 PM
[2024-04-24 13:34] LABS: ALT 43 U/L (4-49); African American GFR (CKD) 7 (>60 ml/min/1.73 sqM); Albumin 4.9 g/dL (3.5-5.0); Blood Urea Nitrogen 96 mg/dL (9-20); Calcium 9.6 mg/dL (8.4-10.2); Chloride 75 mmol/L (98-107); Glucose 226 mg/dL (74-99); Non-African American GFR(CKD) 6 (>60 ml/min/1.73 sqM); Sodium 133 mmol/L (137-145); Total Protein 8.4 g/dL (6.3-8.2)
[2024-04-24 13:38] LABS: INR 0.9 (<1.2); Partial Thromboplastin Time 23.4 sec (22.0-30.0); Prothrombin Time 10.6 sec (10.0-12.5)
[2024-04-24 13:40] LABS: Anion Gap 23 mmol/L
[2024-04-24 13:43] LABS: NT-Pro-B-Type Natriuretic Pept 3300 pg/mL
[2024-04-24 13:55] LABS: Carbon Dioxide 35 mmol/L (22-30)
[2024-04-24 13:56] LABS: AST 55 U/L (17-59); Alkaline Phosphatase 299 U/L (38-126); Magnesium 1.5 mg/dL (1.6-2.3); Potassium 4.6 mmol/L (3.5-5.1)
[2024-04-24 14:27] VITALS: BP 74/48; PULSE 73
[2024-04-24] MEDS ORDERED: ACETAMINOPHEN TAB 325 MG TAB PO PRN (14:47)
[2024-04-24] MEDS ORDERED: NALOXONE 0.4 MG/ML 1 ML VIAL IV PRN (14:47)
[2024-04-24] MEDS ORDERED: LOPERAMIDE 2 MG CAP PO PRN (14:48)
[2024-04-24] MEDS: SODIUM CHLORIDE 0.9% 500 ML 250 ML IV ONE (15:14)
[2024-04-24] MEDS: MIDODRINE 5 MG TAB PO STA ×2 (15:14→15:18)
--- NOTE | 2024-04-24 16:25 | P.HPIM ---
History of Present Illness H&P Date: 04/24/24 Chief Complaint: brennan Whelan is a 63-year-old male with a past medical history of TK from vancomycin on dialysis Friday, small bowel resection from eating raw oysters on chronic TPN. The patient presents to the hospital today complaining of hypotension and weakness. The history from the ER is different from the history I was able to obtain from the patient. The ER had reported the patient had multiple syncopal episodes at home that was noted to be happening more frequently. It appears that the patient was supposed to receive a dialysis session today however this was aborted due to the patient's weakness and he was instructed go to the ER for further evaluation. The patient forms me that he had not passed out. He informs me that occasionally when he stands up he feels lightheaded and dizzy. When he presented to the ER his blood pressure was noted be 70/43. His heart rate was noted be 82. Lab work revealed white blood cell count 9.3 hemoglobin was 9.6 platelet count was 296. INR 0.9 CMP had revealed a creatinine of 8.9 potassium 4.6 lactic acid 2.2 albumin was noted be 4.9 chest x-ray revealed no acute abnormalities Of note the patient had gone to the ER on April 17 complaining of dizziness nausea and vomiting. He got up to the bathroom felt very lightheaded and dizzy. EKG had revealed atrial fibrillation. There is some discrepancy in the chart the patient reports that this is new onset however ER notes on April 12. That he takes amiodarone 200 mg daily at home. EKG had revealed normal sinus rhythm When speaking to the patient he does report a complex 2023 history. He reports that in July he was eating excessive raw oysters in [place]. He reports that he had a bacterial illness that had required the majority of his small bowel to be removed. He had then required TPN for nutritional support due to chronic malabsorption. He expresses that the PICC line was infected in November and he was given vancomycin. He expressed that the vancomycin troughs were not monitored carefully and this had caused him to develop acute kidney injury. He expresses that his new left IJ tunneled PICC line is approximately 3 months old. He reports that he has been on dialysis for the past few weeks and he has been slowly making more urine. Review of Systems All systems: negative (dizziness) Past Medical History Past Medical History: Coronary Artery Disease (CAD), Diabetes Mellitus, Dialysis, Hyperlipidemia, Hypertension Additional Past Medical History / Comment(s): PAD, current dialysis port right chest (Apr 2024), Feeding tube left chest (Apr 2024) History of Any Multi-Drug Resistant Organisms: None Reported Past Surgical History: Appendectomy, Coronary Bypass/CABG Past Psychological History: No Psychological Hx Reported Smoking Status: Current every day smoker Past Alcohol Use History: Occasional Past Drug Use History: None Reported Medications and Allergies Home Medications Medication Instructions Recorded Confirmed Type Rosuvastatin [Crestor] 20 mg PO HS 06/15/21 04/24/24 History Amiodarone [Cordarone] 200 mg PO DAILY 04/24/24 04/24/24 History Aspirin 81 mg PO DAILY 04/24/24 04/24/24 History Clopidogrel [Plavix] 75 mg PO DAILY 04/24/24 04/24/24 History Loperamide [Imodium] 4 mg PO QID PRN 04/24/24 04/24/24 History Metoprolol Tartrate [Lopressor] 12.5 mg PO BID 04/24/24 04/24/24 History Midodrine HCl [ProAmatine] 10 mg PO BID 04/24/24 04/24/24 History Nystatin 100,000 Unit/gm Powd 1 applic TOPICAL TID 04/24/24 04/24/24 History [Mycostatin Powder] OLANZapine 10 mg PO HS 04/24/24 04/24/24 History Omeprazole 40 mg PO DAILY 04/24/24 04/24/24 History Potassium Chloride ER [K-Dur 20] 20 meq PO DAILY 04/24/24 04/24/24 History Sertraline [Zoloft] 25 mg PO DAILY 04/24/24 04/24/24 History Sevelamer [Renvela] 800 mg PO AC-TID 04/24/24 04/24/24 History Allergies Allergy/AdvReac Type Severity Reaction Status Date / Time Penicillins Allergy Unknown Verified 04/24/24 14:32 Physical Exam Vitals: Vital Signs Temp Pulse Pulse Resp BP Pulse Ox 04/24/24 14:26 73 18 74/48 98 04/24/24 13:24 72 18 80/63 92 L 04/24/24 13:20 80 18 63/44 95 04/24/24 13:10 80 18 71/42 99 04/24/24 13:00 82 18 70/43 99 04/24/24 12:50 78 18 83/56 93 L 04/24/24 12:49 79 04/24/24 12:47 97.8 F 75 18 83/56 92 L Intake and Output 04/24/24 04/24/24 04/24/24 06:59 14:59 22:59 Other: Weight 77.111 kg General: non toxic, no distress, appears older than stated age Derm: warm, dry Head: atraumatic, normocephalic, symmetric Eyes: EOMI, no lid lag, anicteric sclera, pupils equal round reactive to light ENT: Nose and ears atraumatic, no thrush, no pharyngeal erythema Neck: No thyromegaly, no cervical lymphadenopathy, trachea midline, supple Mouth: no lip lesion, mucus membranes moist Cardiovascular: S1S2 reg, no murmur, positive posterior tibial pulse bilateral, no edema, capillary refill less than 2 seconds Lungs: clear to ascultation bilateral, no ronchi, no rales, no wheeze, no accessory muscle use Abdominal: soft, nontender to palpation, ostomy bag present Ext: no gross muscle atrophy, muscle strength muscle strength 5 out of 5 in all 4 extremities, no contractures Neuro: moving all extremties spontanously, Psych: Alert, oriented, appropriate affect Lines: R IJ tunneled dialysis line, L IJ tunneled picc line Results CBC & Chem 7: 04/24/24 13:10 04/24/24 13:10 Labs: Abnormal Lab Results - Last 24 Hours (Table) 04/24/24 04/24/24 04/24/24 Range/Units 13:10 13:10 13:10 RBC 3.08 L (4.30-5.90) m/uL Hgb 9.6 L (13.0-17.5) gm/dL Hct 28.5 L (39.0-53.0) % Sodium 133 L (137-145) mmol/L Chloride 75 L (98-107) mmol/L Carbon Dioxide 35 H (22-30) mmol/L BUN 96 H (9-20) mg/dL Creatinine 8.90 H* (0.66-1.25) mg/dL Glucose 226 H (74-99) mg/dL Plasma Lactic Acid Noman 2.2 H* (0.7-2.0) mmol/L Magnesium 1.5 L (1.6-2.3) mg/dL Alkaline Phosphatase 299 H (38-126) U/L Troponin I (0.000-0.034) ng/mL Total Protein 8.4 H (6.3-8.2) g/dL 04/24/24 Range/Units 13:10 RBC (4.30-5.90) m/uL Hgb (13.0-17.5) gm/dL Hct (39.0-53.0) % Sodium (137-145) mmol/L Chloride (98-107) mmol/L Carbon Dioxide (22-30) mmol/L BUN (9-20) mg/dL Creatinine (0.66-1.25) mg/dL Glucose (74-99) mg/dL Plasma Lactic Acid Noman (0.7-2.0) mmol/L Magnesium (1.6-2.3) mg/dL Alkaline Phosphatase (38-126) U/L Troponin I 0.045 H* (0.000-0.034) ng/mL Total Protein (6.3-8.2) g/dL Assessment and Plan Assessment: #) Syncope and hypotension, possibly from dehydration, s/p 2 L IVF in the er. Check echo. REported baseline hypotension and continue midodrinne 10 mg BID. Check bcx to evaluate for line infection given hypotension. Afebrile currently #) TK from vancomycin on iHD ,, . Nephrology input as the patient was unable to get dialysis on 04/24. has a R IJ tunneled dialysis line #) Paroxsymal atrial fibrillation not on anticoagulation? Continue home amioarone 200 mg daily #) S/p Small bowel resection from infection and has TPN for nutritional support. Start tpn tomorrow #) Major depression COntinue home zyprexa 10 mg hs and sertaline 25 mg daily Dispo: Med surge DVT ppx: heparin
[2024-04-24] MEDS ORDERED: SEVELAMER 800 MG TAB PO SCH (17:30)
[2024-04-24] MEDS ORDERED: METOPROLOL TARTRATE 12.5 MG TAB PO SCH (21:00)
[2024-04-24] MEDS ORDERED: MIDODRINE 5 MG TAB PO SCH (21:00)
[2024-04-24] MEDS ORDERED: ATORVASTATIN 40 MG TAB PO SCH (21:00)
[2024-04-24] MEDS ORDERED: OLANZapine 10 MG TAB PO SCH (21:00)
[2024-04-25] MEDS ORDERED: HEPARIN SODIUM,PORCINE 5,000 UNIT/ML 1 ML VIAL SQ SCH
[2024-04-25] MEDS ORDERED: PANTOPRAZOLE 40 MG TABLET PO SCH (07:30)
[2024-04-25] MEDS ORDERED: AMIODARONE 200 MG TAB PO SCH (09:00)
[2024-04-25] MEDS ORDERED: POTASSIUM CHLORIDE ER 20 MEQ TAB.ER PO SCH (09:00)
[2024-04-25] MEDS ORDERED: SERTRALINE 25 MG TAB PO SCH (09:00)
[2024-04-25] MEDS ORDERED: ASPIRIN 81 MG PO SCH (09:00)
[2024-04-25] MEDS ORDERED: CLOPIDOGREL 75 MG TAB PO SCH (09:00)
== END 2024-04-24 16:51 | disposition left against medical advice (07) ==
LOC: EC 12:39 → 3SCARD 14:47 → UNDOADMIN 14:47 → 3SCARD 15:39 → UNDODISIN 16:51 → EC 16:51
DX: I95.9 Hypotension, unspecified (principal); K90.829 Short bowel syndrome, unspecified; N17.9 Acute kidney failure, unspecified; E86.0 Dehydration; T36.8X5S Adverse effect of other systemic antibiotics, sequela; E11.51 Type 2 diabetes mellitus with diabetic peripheral angiopathy without gangrene; E78.5 Hyperlipidemia, unspecified; F17.200 Nicotine dependence, unspecified, uncomplicated; F32.9 Major depressive disorder, single episode, unspecified; I10 Essential (primary) hypertension; I25.10 Atherosclerotic heart disease of native coronary artery without angina pectoris; I48.0 Paroxysmal atrial fibrillation; Z99.2 Dependence on renal dialysis; Z79.82 Long term (current) use of aspirin; Z79.02 Long term (current) use of antithrombotics/antiplatelets; Z95.1 Presence of aortocoronary bypass graft; Z53.29 Procedure and treatment not carried out because of patient's decision for other reasons
CPT/HCPCS: 36415; 71046; 80053; 83605; 83735; 83880; 84484; 85025; 85610; 85730; 86140; 87040; 93005; 96360; 99285